=== PATIENT | female | born 1960 | race Caucasian/White ===

== ENCOUNTER 2020-11-12 11:30 | Emergency (ER) | payer OTHER ==
[~2020-11-12] VITALS: Ht 162.6 cm; Wt 72.7 kg
[2020-11-12 11:49] VITALS: BP 149/88
== END 2020-11-12 12:37 | disposition home or self-care (01) ==
LOC: EMS 11:48
DX: Z20.822 Contact with and (suspected) exposure to COVID-19 (principal)
CPT/HCPCS: 99283; U0003